=== PATIENT | male | born 1955 | race Caucasian/White ===

== ENCOUNTER 2017-01-17 08:35 | Emergency (ER) | payer OTHER ==
[~2017-01-17 08:35] MED LIST: ASPI81TA82 PO; CANA300T PO; CLIN150 PO; FERR324T4 PO; GLUCTAB PO; HYZA100T6 PO; INSULIN PUMP SQ; LEVO100T4 PO; MELO15 PO; PRIL40CA PO; SIMV40TA PO; VITA-13 PO; VITA500T49 PO
[2017-01-17 08:36] VITALS: BP 153/73; PULSE 95; RESP 16; TEMP 98.3; O2SAT 97
--- NOTE | 2017-01-17 08:49 | PD ---
HPI Chief Complaint: Injury Time Seen by Provider: 08:49 Travel History International Travel<30 days: No Contact w/Intl Traveler<30days: No Traveled to known affect area: No History of Present Illness HPI 61-year-old male presents prescribed for evaluation a left second digit injury. Patient states he dropped a large piece of metal on the distal aspect of his left second digit. Patient reports moderate pain site. Pain is exacerbated with flexion and extension however he is able to flex and extend the digit. Denies any alterations in sensation. No other symptoms to report at this time. PFSH Past Medical History Arthritis: Yes Autoimmune Disease: No Blood Disorders: No Heart Rhythm Problems: No Cancer: No Cardiovascular Problems: Yes High Cholesterol: Yes Chemotherapy: No Chest Pain: No Congestive Heart Failure: No Cerebrovascular Accident: No Diabetes: Yes Diminished Hearing: No Endocrine: No Genitourinary: No Headaches: No Hypertension: Yes Immune Disorder: No Musculoskeletal: Yes Neurologic: Yes Psychiatric: No Reproductive: No Respiratory: No Migraines: No Myocardial Infarction: No Radiation Therapy: No Seizures: No Thyroid Disease: Yes Past Surgical History Abdominal Surgery: Yes (LAP BAND 2007) AICD: No Arteriovenous Shunt: No Body Medical Devices: INSULIN PUMP Cardiac Surgery: No Ear Surgery: No Endocrine Surgery: No Eye Surgery: No Genitourinary Surgery: No Gynecologic Surgery: No Insulin Pump: No Joint Replacement: No Oral Surgery: No Pacemaker: No Thoracic Surgery: No Other Surgery: Yes Social History Alcohol Use: No Tobacco Use: No Substance Use: No Allergies-Medications (Allergen,Severity, Reaction): Coded Allergies: No Known Allergies (Verified , 01/17/17) Reported Meds & Prescriptions Reported Meds & Active Scripts Active Cleocin (Clindamycin HCl) 150 Mg Cap 300 Mg PO Q6 7 Days Reported Invokana (Canagliflozin) 300 Mg Tab 300 Mg PO DAILY Ferrous Sulfate 325 Mg Tab 325 Mg PO DAILY Vitamin B12 (Cyanocobalamin) 500 Mcg Tab 500 Mcg PO DAILY Vitamin D3 (Cholecalciferol) 1,000 Unit Tab 1,000 Unit PO DAILY Mobic 15 Mg Tab (Meloxicam) 15 Mg Tab 15 Mg PO DAILY Prilosec 40 mg cap (Omeprazole) 40 Mg Cap 40 Mg PO DAILY Hyzaar 100-25 (Losartan Potassium-Hct 100-25) 100 Mg/25 Mg Tab 1 Tab PO DAILY Levothyroxine 100 mcg (Levothyroxine Sodium) 100 Mcg Tab 112 Mcg PO DAILY Aspir-81 (Aspirin) 81 Mg Tab 81 Mg PO DAILY Simvastatin 40 Mg Tab 40 Mg PO DAILY Metformin ER 24 HR (Metformin HCl) 500 Mg Tab 1,000 Mg PO BID [Insulin Pump] 1 Unit SQ CONT Review of Systems Except as stated in HPI: all other systems reviewed are Neg Physical Exam Narrative GENERAL: Well-nourished, well-developed male patient known acute distress SKIN: Focused skin assessment warm/dry. HEAD: Normocephalic. EYES: No scleral icterus. No injection or drainage. NECK: Supple, trachea midline. No JVD or lymphadenopathy. CARDIOVASCULAR: Regular rate and rhythm without murmurs, gallops, or rubs. RESPIRATORY: Breath sounds equal bilaterally. No accessory muscle use. MUSCULOSKELETAL: No cyanosis. Mild edema of the left second digit. There is no deformity. Patient can flex and extend. Sensation intact distal affected extremity. There is mild bruising on the volar surface of the left second digit. Data Data Last Documented VS Vital Signs Date Time Temp Pulse Resp B/P Pulse Ox O2 Delivery O2 Flow Rate FiO2 01/17/17 08:50 Room Air 01/17/17 08:36 98.3 95 16 153/73 97 Orders Finger ([id number]) (01/17/17 09:21) Splint Or Brace Apply/Monitor (01/17/17 09:53) Finger Splint (01/17/17 ) [facility] Medical Decision Making Medical Screen Exam Complete: Yes Emergency Medical Condition: Yes Medical Record Reviewed: Yes Differential Diagnosis Fracture versus sprain versus contusion versus dislocation Narrative Course 61-year-old male presents to emergency room for evaluation left second digit pain. Patient appears without distress. No obvious deformity. He does not when he medication at this time. Last Impressions Finger X-Ray 01/17/17920 Signed Impressions: Service Date/Time: January 09:31 - CONCLUSION: A couple of tiny punctate radiopaque metal densities within the distal tuft of the second distal phalanx without a clear fracture. Barbi Mckeon MD There is no open area in the skin from uncertain where the metal densities may be and they may be from a previous injury. Patient is placed in a finger splint , counseling care. He agrees to return immediately with any acute worsening of symptoms. Diagnosis Primary Impression: Crushed finger, distal Qualified Code: S67.10XA - Crushed finger, distal, initial encounter Additional Impression: Injury of index finger Qualified Code: S69.92XA - Injury of index finger, left, initial encounter Referrals: Hand Surgeon Primary Care Physician Patient Instructions: Contusion in Adults (ED), General Instructions Additional Instructions: Elevate to reduce pain and swelling Follow-up with her primary care provider Brace for support Follow-up with hand specialist Tylenol and/or ibuprofen as directed on the package as needed for pain Return immediately with any acute worsening symptoms Med/Other Pt SpecificInfo: No Change to Meds Disposition: 01 DISCHARGE HOME (ERASED) Condition: Stable Tasha Bingham Jan 17, 2017 08:49
--- NOTE | 2017-01-17 10:21 | RADRPT ---
EXAM DATE/TIME: 01/17/2017 09:31 [facility] COMPARISON: No previous studies available for comparison. INDICATIONS : Left second finger crushing injury from industrial metal. MEDICAL HISTORY : None. Carpal tunnel syndrome. SURGICAL HISTORY : None. ENCOUNTER: Initial ACUITY: 1 day PAIN SCORE: 5/10 LOCATION: Left hand, 2nd finger FINDINGS: No definite fractures, or dislocations are identified, however there are a couple of punctate radiopa que densities in the distal tuft of the second phalanx may be metal and the possibility of a tiny fra cture at this site is difficult to exclude since there is irregularity of the cortex. No definite ly tic or sclerotic lesion is seen. There is a tiny area of lucency involving the second distal phalanx as well near the DIP joint probably chronic in nature. CONCLUSION: A couple of tiny punctate radiopaque metal densities within the distal tuft of the second distal phalanx without a clear fracture. Barbi Mckeon MD on January 17, 2017 at 10:00 Board Certified Radiologist. This report was verified electronically.
== END 2017-01-17 10:25 | disposition home or self-care (01) ==
LOC: NEPK 08:35
DX: S67.191A Crushing injury of left index finger, initial encounter (principal); M13.80 Other specified arthritis, unspecified site; E78.00 Pure hypercholesterolemia, unspecified; E11.8 Type 2 diabetes mellitus with unspecified complications; I10 Essential (primary) hypertension; W22.8XXA Striking against or struck by other objects, initial encounter; Z79.899 Other long term (current) drug therapy; Z79.4 Long term (current) use of insulin; Z79.82 Long term (current) use of aspirin
CPT/HCPCS: 29130; 73140